=== PATIENT | female | born 1955 | race Caucasian/White ===

== ENCOUNTER 2019-09-02 12:33 | Outpatient (CLI) | payer OTHER ==
--- NOTE | 2019-09-02 13:46 | MRI ---
MRI lumbar spine noncontrast: HISTORY: Lumbar radicular pain. Left leg radiculopathy x8 months. COMPARISON: None Correlation: Lumbar spine CT 03/24/2019 FINDINGS: Appropriate T1 marrow signal intensity of the lumbar vertebra. Lumbar spine vertebral body height is maintained. No fracture. No significant STIR hyperintensity to suggest vertebral body edema or ligamentous injury. Appropriate signal intensity of the visualized paraspinal muscles and solid organs Conus medullaris terminates at the T12-L1 disc space Severe loss of disc space height at T11-T12, incompletely evaluated. 2.1 mm of retrolisthesis. Severe loss of disc space height at T9-T10 and T10-T11. Based on the sagittal images, there is at least mild central canal stenosis at T11-T12. 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 T12-L1:No significant central canal stenosis or significant neural foraminal narrowing L1-L2:Broad-based disc bulge minimally flattens the thecal sac. No significant central canal stenosis or significant neural foraminal narrowing L2-L3:Adequate disc hydration. No significant loss of disc space height. Broad-based disc bulge, liga ment flavum thickening and facet hypertrophy result in mild central canal stenosis. Encroachment upon bilateral subarticular zones with partial obscuration of bilateral traversing L3 nerve roots. Th ere is fluid in both facet joints. Moderate right and mild left neural foraminal narrowing L3-L4:Desiccation with mild loss of disc space height. Broad-based disc bulge with central superior d isc extrusion. Moderate central canal stenosis. Moderate right and [id number] left neural foraminal narrowing. L4-L5:Mild loss of disc space height. Broad-based disc bulge, ligament flavum thickening and facet hy pertrophy result in moderate central canal stenosis. Near complete obscuration the traversing left L5 nerve root. There is fluid in both facet joints. Moderate bilateral neural foraminal narrowing. L5-S1:Broad-based disc bulge abuts the thecal sac. Disc material encroaches upon bilateral subarticul ar zones. Mass effect without obscuration of either traversing S1 nerve root. Bilateral facet hypertrophy with a small amount of fluid in both facet joints. Mild bilateral neural foraminal narrow ing IMPRESSION: Degenerative changes of lumbar spine as above. Transcribed Date/Time: 09/02/2019 2:15 PM
== END 2019-09-02 12:34 | disposition home or self-care (01) ==
LOC: SCSMRI 12:33
PROVIDERS: ATTEND Nurse Practitioner Family
DX: M47.26 Other spondylosis with radiculopathy, lumbar region (principal); M48.061 Spinal stenosis, lumbar region without neurogenic claudication
CPT/HCPCS: 72148